=== PATIENT | male | born 1995 | race Caucasian/White ===

== ENCOUNTER 2023-05-08 11:54 | Emergency (ER) | payer MEDICAID ==
[~2023-05-08] VITALS: Ht 177.8 cm; Wt 100.0 kg
[2023-05-08 12:03] VITALS: TEMP 98.1
[2023-05-08] MEDS ORDERED: normal saline 1000ML IV soln IVB ONE (13:15)
[2023-05-08 13:54] LABS: BASOPHILS % (AUTO) 0.2 % (0-1); EOSINOPHILS # (AUTO) 0.1 X10'3 (0-0.9); HEMATOCRIT 44.1 % (42.0-52.0); HEMOGLOBIN 14.9 g/dl (14.0-17.9); LYMPHOCYTES % (AUTO) 8.8 % (21-51); MEAN CORPUSCULAR HEMOGLOBIN 32.5 PG (27.0-31.0); MEAN CORPUSCULAR HGB CONC 33.8 g/dL (33.0-36.5); MEAN CORPUSCULAR VOLUME 96.2 FL (78-98); MEAN PLATELET VOLUME 7.3 FL (7.4-10.4); MONOCYTES # (AUTO) 0.7 X10'3 (0-0.9); MONOCYTES % (AUTO) 6.9 % (2-12); NEUTROPHILS # (AUTO) 8.9 X10'3 (1.8-7.7); NEUTROPHILS % (AUTO) 83.1 % (42-75); PLATELET COUNT 265 X10'3 (140-440); RED BLOOD COUNT 4.59 X10'6 (4.70-6.10); RED CELL DISTRIBUTION WIDTH 12.8 % (11.5-14.5); WHITE BLOOD COUNT 10.8 X10'3 (4.5-11.0)
[2023-05-08 14:13] LABS: ALANINE AMINOTRANSFERASE 32 U/L (12-78); ALBUMIN 3.9 G/DL (3.4-5.0); ALBUMIN/GLOBULIN RATIO 1.1 (1.1-1.5); ALKALINE PHOSPHATASE 79 IU/L (46-116); ANION GAP 6 (8-16); ASPARTATE AMINO TRANSFERASE 24 U/L (10-37); BILIRUBIN,TOTAL 0.3 MG/DL (0.1-1.0); BLOOD UREA NITROGEN 16 MG/DL (7-18); BUN/CREATININE RATIO 13.9 (10.0-20.0); CALCIUM 9.3 MG/DL (8.5-10.1); CHLORIDE 103 MMOL/L (99-107); CREATININE 1.15 MG/DL (0.60-1.10); ETHANOL < 10 MG/DL (<10); GLUCOSE 111 MG/DL (70-104); POTASSIUM 4.5 MMOL/L (3.5-5.1); SODIUM 138 MMOL/L (135-145); TOTAL PROTEIN 7.5 G/DL (6.4-8.2); eCRCL 97 ML/MIN; eGFR 75 ML/MIN
[2023-05-08 14:27] VITALS: PULSE 80; O2SAT 99
--- NOTE | 2023-05-08 14:37 | NUR ---
PATIENT'S GIRLFRIEND ARRIVED AND ASSISTED PATIENT TO PULL OUT HIS IV AND DISCONNECT HIMSELF FROM THE MONITOR. DEPARTED AMA FROM THE ER IN GOOD CONDITION.
[2023-05-08 14:39] VITALS: BP 117/76; RESP 18
--- NOTE | 2023-05-08 14:50 | NUR ---
PT LEFT ED AMBULATORY AMA WITHOUT NOTIFYING STAFF OR THIS RN OR SIGNING AMA FORM. PER CHARGE ABDON PINO PT PULLED OUT HIS IV AND IT IS UNKNOWN IF THE TIP WAS INTACT OR THERE WAS COMPLICATION.
== END 2023-05-08 14:40 | disposition left against medical advice (07) ==
LOC: ER 11:54
DX: T40.691A Poisoning by other narcotics, accidental (unintentional), initial encounter (principal); R41.82 Altered mental status, unspecified; Y92.89 Other specified places as the place of occurrence of the external cause
CPT/HCPCS: 36415; 80053; 80320; 85025; 99285; J7030

== ENCOUNTER 2023-05-27 10:36 | Emergency (ER) | payer MEDICAID, OTHER ==
[~2023-05-27] VITALS: Ht 185.4 cm; Wt 79.5 kg
[2023-05-27 10:51] VITALS: BP 131/83; PULSE 91; TEMP 97.5; O2SAT 94
[2023-05-27 11:25] LABS: BASOPHILS % (AUTO) 0.6 % (0-1); EOSINOPHILS # (AUTO) 0.2 X10'3 (0-0.9); EOSINOPHILS % (AUTO) 4.8 % (0-6); HEMATOCRIT 42.2 % (42.0-52.0); HEMOGLOBIN 14.5 g/dl (14.0-17.9); LYMPHOCYTES % (AUTO) 39.3 % (21-51); MEAN CORPUSCULAR HEMOGLOBIN 32.9 PG (27.0-31.0); MEAN CORPUSCULAR HGB CONC 34.4 g/dL (33.0-36.5); MEAN CORPUSCULAR VOLUME 95.6 FL (78-98); MEAN PLATELET VOLUME 7.2 FL (7.4-10.4); MONOCYTES # (AUTO) 0.5 X10'3 (0-0.9); MONOCYTES % (AUTO) 9.2 % (2-12); NEUTROPHILS # (AUTO) 2.3 X10'3 (1.8-7.7); NEUTROPHILS % (AUTO) 46.1 % (42-75); PLATELET COUNT 235 X10'3 (140-440); RED BLOOD COUNT 4.41 X10'6 (4.70-6.10); RED CELL DISTRIBUTION WIDTH 12.6 % (11.5-14.5)
[2023-05-27 11:38] LABS: ALANINE AMINOTRANSFERASE 30 U/L (12-78); ALBUMIN/GLOBULIN RATIO 1.2 (1.1-1.5); ALKALINE PHOSPHATASE 74 IU/L (46-116); ANION GAP 7 (8-16); ASPARTATE AMINO TRANSFERASE 31 U/L (10-37); BILIRUBIN,TOTAL 0.3 MG/DL (0.1-1.0); BLOOD UREA NITROGEN 17 MG/DL (7-18); BUN/CREATININE RATIO 14.9 (10.0-20.0); CALCIUM 8.8 MG/DL (8.5-10.1); CHLORIDE 101 MMOL/L (99-107); CREATININE 1.14 MG/DL (0.60-1.10); GLUCOSE 181 MG/DL (70-104); POTASSIUM 3.4 MMOL/L (3.5-5.1); SODIUM 135 MMOL/L (135-145); TOTAL CARBON DIOXIDE 26.6 MMOL/L (24-32); TOTAL PROTEIN 7.3 G/DL (6.4-8.2); eCRCL 107 ML/MIN; eGFR 75 ML/MIN
[2023-05-27 11:39] VITALS: RESP 15
[2023-05-27] MEDS ORDERED: BUPR1FIL3 SL (12:30)
--- NOTE | 2023-05-27 12:38 | NUR ---
Met with patient for substance use and to see if patient is interested in resources for treatment options. Patient is interested. Patient was clean for 6 months and recently relapsed. Patient would like to start Suboxone. I talked to Dr Lara and he will prescribe Suboxone and I will Bridge patient to [facility]. I gave patient a list of resources and my card to call me with any questions.
== END 2023-05-27 12:48 | disposition home or self-care (01) ==
LOC: ER 10:37
DX: R55 Syncope and collapse (principal); R42 Dizziness and giddiness; Z88.0 Allergy status to penicillin
CPT/HCPCS: 36415; 80053; 85025; 93005; 99284

== ENCOUNTER 2023-07-16 13:07 | Emergency (ER) | payer MEDICAID, OTHER ==
[~2023-07-16] VITALS: Ht 182.9 cm; Wt 74.3 kg
[2023-07-16 13:26] VITALS: TEMP 97.7
[2023-07-16] MEDS ORDERED: BUPR1FIL3 BC (13:49)
[2023-07-16 14:14] LABS: BASOPHILS % (AUTO) 0.4 % (0-1); EOSINOPHILS # (AUTO) 0.2 X10'3 (0-0.9); HEMOGLOBIN 14.9 g/dl (14.0-17.9); LYMPHOCYTES # (AUTO) 1.5 X10'3 (1.1-4.8); LYMPHOCYTES % (AUTO) 19.6 % (21-51); MEAN CORPUSCULAR HGB CONC 33.8 g/dL (33.0-36.5); MEAN CORPUSCULAR VOLUME 94.4 FL (78-98); MEAN PLATELET VOLUME 7.3 FL (7.4-10.4); MONOCYTES # (AUTO) 0.6 X10'3 (0-0.9); NEUTROPHILS # (AUTO) 5.5 X10'3 (1.8-7.7); PLATELET COUNT 260 X10'3 (140-440); RED BLOOD COUNT 4.66 X10'6 (4.70-6.10); RED CELL DISTRIBUTION WIDTH 12.7 % (11.5-14.5); WHITE BLOOD COUNT 7.8 X10'3 (4.5-11.0)
[2023-07-16 14:36] LABS: ALANINE AMINOTRANSFERASE 28 U/L (12-78); ALBUMIN 3.8 G/DL (3.4-5.0); ALBUMIN/GLOBULIN RATIO 1.2 (1.1-1.5); ALKALINE PHOSPHATASE 79 IU/L (46-116); ANION GAP 8 (8-16); ASPARTATE AMINO TRANSFERASE 19 U/L (10-37); BILIRUBIN,TOTAL 0.2 MG/DL (0.1-1.0); BLOOD UREA NITROGEN 20 MG/DL (7-18); BUN/CREATININE RATIO 18.2 (10.0-20.0); CALCIUM 8.7 MG/DL (8.5-10.1); CHLORIDE 102 MMOL/L (99-107); GLUCOSE 189 MG/DL (70-104); SODIUM 137 MMOL/L (135-145); TOTAL PROTEIN 7.1 G/DL (6.4-8.2); eCRCL 103 ML/MIN; eGFR 79 ML/MIN
[2023-07-16 15:30] VITALS: BP 114/76; PULSE 90; RESP 16; O2SAT 99
== END 2023-07-16 15:26 | disposition home or self-care (01) ==
LOC: ER 13:08
DX: T40.411A Poisoning by fentanyl or fentanyl analogs, accidental (unintentional), initial encounter (principal); R41.82 Altered mental status, unspecified; Y93.89 Activity, other specified; Z88.0 Allergy status to penicillin; Z79.899 Other long term (current) drug therapy
CPT/HCPCS: 36415; 80053; 85025; 99283

== ENCOUNTER 2024-08-01 10:55 | Emergency (ER) | payer MEDICAID ==
[~2024-08-01] VITALS: Ht 182.9 cm; Wt 81.8 kg
[~2024-08-01 10:55] MED LIST: BUPR1FIL3 BC
[2024-08-01 10:57] VITALS: TEMP 97.6
[2024-08-01] MEDS: LIDOcaine 1% 30ml preserv. free vial IJ STA (11:30)
[2024-08-01] MEDS: ondansetron 4mg rapidly disintigrating tab PO ONE (11:48)
[2024-08-01] MEDS: morphine 4 MG/ML inj SYRINge IV ONE (11:54)
[2024-08-01 12:27] VITALS: BP 120/72; PULSE 69; RESP 18; O2SAT 100
[2024-08-01] MEDS ORDERED: HYDR-3965 PO (12:28)
== END 2024-08-01 12:43 | disposition home or self-care (01) ==
LOC: ER 10:55
DX: S52.502A Unspecified fracture of the lower end of left radius, initial encounter for closed fracture (principal); Z88.0 Allergy status to penicillin; Z79.899 Other long term (current) drug therapy; W18.39XA Other fall on same level, initial encounter; Y93.89 Activity, other specified; Y92.89 Other specified places as the place of occurrence of the external cause; Y99.8 Other external cause status
CPT/HCPCS: 25605; 73090; 73100; 73130; 96374; 99284; J2270; A4565; A6446

== ENCOUNTER 2025-01-21 21:05 | Emergency (ER) | payer MEDICAID ==
[~2025-01-21] VITALS: Ht 175.3 cm; Wt 84.1 kg
--- NOTE | 2025-01-21 21:08 | Physician Documentation ---
History of Present Illness ~ Stated Complaint: ALTERED Time Seen by MD: 21:07 Primary Medical Doctor: NONE Exam Limitations: clinical condition HPI 29-year-old male, brought in by EMS with altered mental status and found down. Unable to obtain any history from the patient. EMS reports that he was found down by friends, at a house where there was a lot of drug paraphernalia in activity. Initially he was acting erratically and very agitated, was a danger to himself and others. He was given 10 mg of IM Valium during transport Blood glucose slightly elevated. Vital signs with tachycardia. Otherwise no history available. Medication Reconciliation Allergies: Coded Allergies: Penicillins (Verified Allergy, Unknown, 05/27/23) Scheduled Buprenorphine Hcl/Naloxone Hcl (Suboxone 8 Mg-2 Mg Sl Film), 1 FILM BC BID, (Reported) Past Medical History Past Medical History: No Pertinent History Past Surgical History: orthopedic surgeries Alcohol Use: None Drug Use: other Lives In: Home Occupation: employed Review of Systems Unable to obtain complete ROS: altered mental status Physical Exam Physical Exam General: This is a thin young male, appears very sedated and unresponsive at this time, but is breathing and appears to be protecting his airway HEENT: No obvious trauma to the scalp or face, oropharynx and lips are dry Heart: Tachycardic, appears regular Lungs: Clear breath sounds bilateral, no significant wheezing or crackles, normal oxygen saturation on room air Abdomen: Soft, nondistended Extremities: Warm and well-perfused, no significant traumatic findings to the extremities Neuro: The patient is sedated, is unresponsive to voice or painful stimuli Progress Results/Orders Results/Orders Orders - CLIVE MCCABE MD Ct Head (01/21/25 21:35) Behavioral Restraints (01/21/25 ) Straight Cath (01/22/25 ) Completed Orders - CLIVE MCCABE MD Ct Head (01/21/25 21:35) Normal Saline 1000ml (Sodium Chloride 10 (01/21/25 22:20) Medications Received in ER Medications (Trade) Dose Ordered Sig/Socrates Route PRN Reason Start Time Stop Time Status Last Admin Dose Admin Sodium Chloride 1,000 ml @ 1,000 mls/hr ONCE ONCE IV 01/21/25 22:20 01/21/25 23:19 DC 01/21/25 23:37 1,000 MLS/HR Vital Signs 01/21/25 01/21/25 01/21/25 01/21/25 21:17 21:30 21:45 22:00 Temp 97.2 97.2 Pulse 93 93 90 93 Resp 24 18 20 18 B/P (MAP) 121/83 (96) 111/77 (88) 121/82 (95) Pulse Ox 95 96 96 98 01/21/25 01/21/25 01/21/25 01/22/25 22:00 22:15 22:30 00:00 Temp 97.2 97.2 97.2 Pulse 90 92 90 Resp 18 16 20 B/P (MAP) 111/77 (88) Pulse Ox 99 99 98 01/22/25 01/22/25 01/22/25 01/22/25 00:33 01:13 01:15 01:17 Temp 97.2 97.2 Pulse 62 62 62 Resp 13 10 14 B/P (MAP) 112/74 (87) 112/74 (87) Pulse Ox 100 99 96 01/22/25 01/22/25 01/22/25 01/22/25 02:00 02:31 02:45 03:02 Temp 97.2 97.2 97.2 97.2 Pulse 64 55 56 56 Resp 13 15 15 12 B/P (MAP) 119/74 (89) Pulse Ox 99 100 100 100 01/22/25 01/22/25 01/22/25 01/22/25 03:05 03:20 03:43 03:53 Temp 97.2 97.2 Pulse 60 62 66 Resp 16 12 12 B/P (MAP) 115/82 (93) 111/63 (79) 130/78 (95) Pulse Ox 100 100 99 Laboratory Tests Test 01/21/25 21:31 01/22/25 01:44 White Blood Count 10.7 Red Blood Count 4.56 L Hemoglobin 14.5 Hematocrit 41.4 L Mean Corpuscular Volume 90.6 Mean Corpuscular Hemoglobin 31.8 H Mean Corpuscular Hemoglobin Concent 35.1 Red Cell Distribution Width 12.8 Platelet Count 233 Mean Platelet Volume 7.6 Neutrophils (%) (Auto) 83.0 H Lymphocytes (%) (Auto) 9.6 L Monocytes (%) (Auto) 6.1 Eosinophils (%) (Auto) 0.9 Basophils (%) (Auto) 0.4 Neutrophils # (Auto) 8.9 H Lymphocytes # (Auto) 1.0 L Monocytes # (Auto) 0.7 Eosinophils # (Auto) 0.1 Basophils # (Auto) 0.0 CBC Comment Sodium Level 142 Potassium Level 3.4 L Chloride Level 105 Carbon Dioxide Level 27.3 Anion Gap 10 Blood Urea Nitrogen 15 Creatinine 1.53 H Estimated GFR/1.73 m2 53 BUN/Creatinine Ratio 9.8 L Glucose Level 109 H Calcium Level 8.8 Total Creatine Kinase 397 H Troponin I High Sensitivity 15 Albumin 4.0 Chemistry Comments Ethyl Alcohol Level < 10 Urine Specimen Description Straight cath Urine Color Yellow Urine Clarity Clear Urine pH 6.0 Urine Specific [place] >=1.030 Urine Protein 30 H Urine Glucose (UA) Negative Urine Ketones Trace H Urine Occult Blood Negative Urine Nitrite Negative Urine Bilirubin Negative Urine Urobilinogen 0.2 Urine Leukocyte Esterase Negative Urine RBC 3-10 Urine WBC 5-10 H Urine Squamous Epithelial Cells None seen Urine Bacteria 2+ Urine Fine Granular Casts 5-10 Urine Coarse Granular Casts 0-3 Urine Mucus Few Urine Culture Indicated Indicated Volume Urine Centrifuged 10 ml Urine Comment Urine Opiates Screen Negative Urine Methadone Screen Negative Urine Fentanyl Screen Positive H Urine Barbiturates Screen Negative Urine Phencyclidine Screen Negative Urine Amphetamines Screen Positive Urine Benzodiazepines Screen Positive Urine Cocaine Screen Negative Urine Cannabinoids Screen Negative Drug Screen Comment Microbiology Date/Time Source Procedure Growth Status 01/22/25 02:08 Urine Straight Cath Urine Culture - Preliminary Culture received. Resulted Re-Evaluation Re-Evaluation : Re-Evaluation Time: 05:18 Re-Evaluation: Improved Progress The patient is now awake, oriented, able to ambulate. He does not remember what happened last night. EKG/XRAY/CT/US/VASC/MRI EKG : Additional Comment I personally interpreted the EKG and this shows: Sinus rhythm, rate 92, incomplete right bundle branch block, no STEMI, QTC 458 CT : Impression I personally reviewed the CT scan, and this shows no acute fracture, intracranial hemorrhage, or mass Medical Decision Making Differential Dx:Considerations: Include: dehydration, encephalopathy, hyponatr emia, closed head injury, subarachnoid hemorrhage, drug overdose, ETOH intoxication, medication toxicity Assessment 29-year-old male presenting with altered mental status and reported agitation in the setting of possible drug use. By time of my evaluation he received IM Valium and is very sedated. Unable to obtain any history. No evidence of obvious trauma on full body exam. His laboratory testing shows mild hypokalemia, possible mild MYA. He was given IV fluids. Drug screen positive for fentanyl only. Head CT without acute hemorrhage or other abnormality. He was observed here in the emergency department with gradual improvement. In the morning, he was able to wake up, ambulate, and eat. He does not really remember what happened, but he does admit to fentanyl use. At this time he does not appear to have an acute medical or surgical emergency. He will be discharged with a friend. Departure Time of Disposition: 05:20 Disposition: 01 HOME / SELF CARE / HOMELESS Impression: Primary Impression: Altered mental status Condition: Improved Discharge Instructions: Accidental Drug Poisoning, Adult Referrals: NO PRIMARY CARE PROVIDER (PCP) Education Educated: Patient Educated regarding: diagnosis Signature Scribe Signature: [email or web address] Attestation: CLIVE Urena MD January 21, 2025 21:08
--- NOTE | 2025-01-21 21:22 | ELECTROCARDIOGRAPH REPORT ---
[facility] Test Date: 2025-01-21 Test Time: 21:17:10 Pat Name: MICHAEL ORO Department: EMERGENCY ROOM Room: Gender: M Mandrel Maker: JOYCE : 1995 Requested By: BRIANA DAI Order Number: [id number] Reading MD: Measurements Intervals [place] Rate: 92 P: 68 VT: 140 QRS: 64 QRSD: 118 T: 60 QT: 370 QTc: 458 Interpretive Statements Sinus rhythm Incomplete right bundle branch block Please click the below link to view image of tracing.
[2025-01-21 21:48] LABS: BASOPHILS % (AUTO) 0.4 % (0-1); EOSINOPHILS # (AUTO) 0.1 X10'3 (0-0.9); EOSINOPHILS % (AUTO) 0.9 % (0-6); HEMATOCRIT 41.4 % (42.0-52.0); HEMOGLOBIN 14.5 g/dl (14.0-17.9); LYMPHOCYTES % (AUTO) 9.6 % (21-51); MEAN CORPUSCULAR HEMOGLOBIN 31.8 PG (27.0-31.0); MEAN CORPUSCULAR HGB CONC 35.1 g/dL (33.0-36.5); MEAN CORPUSCULAR VOLUME 90.6 FL (78-98); MEAN PLATELET VOLUME 7.6 FL (7.4-10.4); MONOCYTES # (AUTO) 0.7 X10'3 (0-0.9); MONOCYTES % (AUTO) 6.1 % (2-12); NEUTROPHILS # (AUTO) 8.9 X10'3 (1.8-7.7); PLATELET COUNT 233 X10'3 (140-440); RED BLOOD COUNT 4.56 X10'6 (4.70-6.10); RED CELL DISTRIBUTION WIDTH 12.8 % (11.5-14.5); WHITE BLOOD COUNT 10.7 X10'3 (4.5-11.0)
[2025-01-21 21:49] LABS: ANION GAP 10 (8-16); BLOOD UREA NITROGEN 15 MG/DL (7-18); BUN/CREATININE RATIO 9.8 (10.0-20.0); CALCIUM 8.8 MG/DL (8.5-10.1); CHLORIDE 105 MMOL/L (99-107); CREATININE 1.53 MG/DL (0.60-1.10); GLUCOSE 109 MG/DL (70-104); POTASSIUM 3.4 MMOL/L (3.5-5.1); SODIUM 142 MMOL/L (135-145); TOTAL CARBON DIOXIDE 27.3 MMOL/L (24-32); eCRCL 70 ML/MIN; eGFR 53 ML/MIN
--- NOTE | 2025-01-21 22:12 | RADIOLOGY REPORT ---
EXAM: CT CT HEAD INDICATION: Altered mental status, found down EXAM DATE: 01/21/2025 09:43 PM COMPARISON: None TECHNIQUE: CT of the head without intravenous contrast. Radiation Dose Information: CTDI volume is 68.15 mGy. Dose-length product is 1387.40 mGy*cm FINDINGS: There is no evidence of acute intracranial hemorrhage, extra-axial collection, mass effect, midline s hift, herniation or hydrocephalus. The ventricles, sulci and cisterns are age appropriate. The shine-w maverick differentiation is intact. The visualized paranasal sinuses and mastoid air cells are clear. The surrounding soft tissues and osseous structures are unremarkable. IMPRESSION: 1. No evidence of acute intracranial hemorrhage, mass effect or hydrocephalus.
--- NOTE | 2025-01-21 22:18 | RADIOLOGY REPORT ---
CHEST RADIOGRAPH Indication: aloc Technique: Single frontal view of the chest was obtained Comparison: None FINDINGS: Lines and Tubes: None Lungs: No focal consolidation. Pleura: No effusion. No pneumothorax. Cardiomediastinal contours: Unremarkable Bones: No acute osseous abnormality. IMPRESSION: 1. No acute cardiopulmonary disease.
[2025-01-21 22:44] LABS: CREATINE KINASE 397 U/L (39-308)
[2025-01-21 23:06] LABS: ETHANOL < 10 MG/DL (<10)
[2025-01-21] MEDS: normal saline 1000ml 1,000 ML IV ONE (23:37)
[2025-01-22 01:52] LABS: BILIRUBIN,URINE NEGATIVE (Neg); CLARITY,URINE CLEAR (Clear); COLOR,URINE YELLOW (Yellow); GLUCOSE, URINE NEGATIVE (Neg); KETONES,URINE TRACE mg/dl (Neg); LEUKOCYTE ESTERASE ,URINE NEGATIVE (Neg); NITRITES, URINE NEGATIVE (Neg); OCCULT BLOOD,URINE NEGATIVE (Neg); PROTEIN,URINE 30 mg/dl (Neg); UROBILINOGEN,URINE 0.2 E.U/dL (0.2-1.0)
[2025-01-22 01:55] LABS: UA COLLECTION TYPE STRAIGHT CATH
[2025-01-22 02:07] LABS: BACTERIA,URINE 2+ /HPF (Neg); COARSE GRANULAR CAST 0-3 /LPF (NEGATIVE); MUCUS STRANDS FEW /LPF (Neg); SQUAMOUS EPITHELIAL CELL,UR NONE SEEN /LPF (FEW)
[2025-01-22 02:09] LABS: URINE AMPHETAMINE SCREEN POSITIVE (Neg); URINE BARBITUATE SCREEN NEGATIVE (Neg); URINE BENZODIAZEPINES SCREEN POSITIVE (Neg); URINE CANNABINOID SCREEN NEGATIVE (Neg); URINE COCAINE SCREEN NEGATIVE (Neg); URINE METHADONE SCREEN NEGATIVE (Neg); URINE OPIATE SCREEN NEGATIVE (Neg); URINE PHENCYCLIDINE SCREEN NEGATIVE (Neg)
[2025-01-22 05:30] VITALS: BP 115/76; PULSE 62; RESP 12; TEMP 97.2; O2SAT 100
== END 2025-01-22 05:42 | disposition home or self-care (01) ==
LOC: ER 21:06
DX: R41.82 Altered mental status, unspecified (principal); E87.6 Hypokalemia; Z88.0 Allergy status to penicillin; Z79.899 Other long term (current) drug therapy; Z98.890 Other specified postprocedural states
CPT/HCPCS: 36415; 70450; 71045; 80048; 80305; 80320; 81001; 82550; 84484; 85025; 87088; 93005; 99285; J7030; A4615; A4620; C1758